=== PATIENT | female | born 2000 | race Hispanic/Latino ===

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

== ENCOUNTER 2018-05-04 15:24 | Emergency (ER) | payer SELFPAY ==
[~2018-05-04] VITALS: Ht 162.6 cm; Wt 83.9 kg
[~2018-05-04 15:24] MED LIST changes: +ACHD5005 PO; +CEFD300C3 PO; -HYDR-3812 PO; +METH-313 PO; +NAPR-1070 PO
[2018-05-04] MEDS ORDERED: ANTACID SUSP 30 ML UDC (MYLANTA) PO ONE (15:45)
[2018-05-04] MEDS ORDERED: LIDOCAINE 2% VISCOUS 15 ML UDC PO ONE (15:45)
[2018-05-04] MEDS ORDERED: ONDANSETRON 4 MG (ZOFRAN) ORAL DISSOLVE TAB SL ONE (15:45)
--- NOTE | 2018-05-04 15:52 | ED Abdominal Pain ---
General Chief Complaint: Abdominal/GI Problems Stated Complaint: STOMACH PAIN AFTER EATING Nursing Triage Note: PT REPORTS CONSTANT EPIGASTRIC PAIN X 3 DAYS. REPORTS SHE HAS HAD INTERMITTENT EPIGASTRIC PAIN 2-3 WEEKS. REPORTS SHE HAS HAD HER GALLBLADDER REMOVED 2 YEARS AGO BUT STILL EATS SPICY, GREASY FOODS. Sepsis Screen: No Definite Risk Source of Information: Patient, Old Records Exam Limitations: No Limitations History of Present Illness Date Seen by Provider: May 04, 2018 Time Seen by Provider: 15:34 Initial Comments This 18-year-old young lady presents to the emergency room with complaints of epigastric pain intermittently for the past 3 days. She particularly has pain after eating. Also repeated his delayed about 15-30 minutes after eating. She is status post cholecystectomy due to cholelithiasis in 2016.. She also had an ERCP prior to the cholecystectomy. She has nausea associated with the pain but no vomiting. She also has diarrhea shortly after eating. She denies any fever. She took Pepto-Bismol which was not effective. She reports her pain president is 6/10. She is still nauseated at present. Allergies and Home Medications Allergies Coded Allergies: No Known Drug Allergies (Unverified , 08/21/16) Home Medications Cefdinir 300 Mg Capsule, 300 MG PO BID Prescribed by: ISABEL ESCOBAR on 08/21/162123 Methocarbamol 750 Mg Tablet, 1,500 MG PO QID Prescribed by: ISABEL ESCOBAR on 08/21/162123 Naproxen Sodium 550 Mg Tablet, 550 MG PO Q12H Prescribed by: ISABEL ESCOBAR on 08/21/162123 Omeprazole 20 Mg Tablet.dr, 20 MG PO BID Prescribed by: ROBER LUCAS on 05/04/18 1645 Patient Home Medication List Home Medication List Reviewed: Yes Review of Systems Review of Systems Constitutional: no symptoms reported EENTM: No Symptoms Reported Respiratory: No Symptoms Reported Cardiovascular: No Symptoms Reported Gastrointestinal: See HPI Genitourinary: No Symptoms Reported Musculoskeletal: no symptoms reported Skin: no symptoms reported Psychiatric/Neurological: No Symptoms Reported Endocrine: No Symptoms Reported Hematologic/Lymphatic: No Symptoms Reported Past Hcgqhbf-Mgskgn-Kxmckh Hx Past Med/Social Hx: Reviewed and Corrections made Patient Social History Alcohol Use: Denies Use Recreational Drug Use: No Smoking Status: Never a Smoker 2nd Hand Smoke Exposure: No Recent Foreign Travel: No Contact w/Someone Who Travel: No Recent Infectious Disease Expo: No Recent Hopitalizations: No Physical Abuse: No Sexual Abuse: No Mistreated: No Fear: No Immunizations Up To Date Tetanus Booster (TDap): Unknown PED Vaccines UTD: Yes Date of Influenza Vaccine: Apr 26, 2016 Seasonal Allergies Seasonal Allergies: No Past Medical History Surgeries: Yes Abdominal (ERCP), Gallbladder Respiratory: No Cardiac: No Neurological: No : No Last Menstrual Period: May 01, 2018 Reproductive Disorders: Yes Female Reproductive Disorders: Menstrual Problems Sexually Transmitted Disease: No HIV/AIDS: No Gastrointestinal: Yes (CLINICAL DX--NO EGD OR GI STUDIES DONE) Gastroesophageal Reflux, Gall Bladder Disease Musculoskeletal: No Endocrine: No HEENT: No Cancer: No Psychosocial: No Integumentary: No Blood Disorders: Yes (ANEMIA WITH ) Adverse Reaction/Blood Tranf: No Family Medical History Reviewed Nursing Family Hx ABD PAIN 19 MOTHER Asthma 19 MOTHER G8 BROTHER No Pertinent Family Hx Physical Exam Vital Signs Vital Signs - First Documented 05/04/18 15:39 Temp 98.2 Pulse 75 Resp 20 B/P (MAP) 131/96 (108) Pulse Ox 96 Capillary Refill : Less Than 3 Seconds Height/Weight/BMI Height: 5'4.00" Weight: 185lbs. 0.0oz. 83.285541ib; 29.18 BMI Method:Stated General Appearance: WD/WN, no apparent distress HEENT: normal ENT inspection Neck: normal inspection Respiratory: lungs clear, normal breath sounds, no respiratory distress, no accessory muscle use Cardiovascular: regular rate, rhythm, no edema, no murmur Gastrointestinal: normal bowel sounds, soft, tenderness (point tenderness in the epigastrium) Extremities: normal inspection, no pedal edema Neurologic/Psychiatric: cut filer II-XII nml as tested, no motor/sensory deficits, alert, normal mood/affect, oriented x 3 Skin: normal color, warm/dry Progress/Results/Core Measures Results/Orders My Orders Orders - ROBER MILLIGAN MD Ondansetron Oral Dissolve Tab (Zofran (05/04/18 15:45) Lidocaine 2% Viscous 15 Ml (Xylocaine Vi (05/04/18 15:45) Antacid Suspension (Mylanta Suspension (05/04/18 15:45) Medications Given in ED Current Medications Medications Dose Ordered Sig/Shawn Route Start Time Stop Time Status Last Admin Dose Admin Al Hydrox/Mg Hydrox/Simethicone 30 ml ONCE ONCE PO 05/04/18 15:45 05/04/18 15:46 DC 05/04/18 16:02 30 ML Lidocaine HCl 15 ml ONCE ONCE PO 05/04/18 15:45 05/04/18 15:46 DC 05/04/18 16:02 15 ML Ondansetron HCl 8 mg ONCE ONCE SL 05/04/18 15:45 05/04/18 15:46 DC 05/04/18 16:02 8 MG Vital Signs/I&O 05/04/18 15:39 Temp 98.2 Pulse 75 Resp 20 B/P (MAP) 131/96 (108) Pulse Ox 96 Blood Pressure Mean: 108 Progress Progress Note : Progress Note Patient was treated with sublingual Zofran and a GI cocktail. This reduced her pain from 6/10 down to 3/10. She was much less tender on reexamination. Given these results, evaluation with labs was felt unnecessary. Patient does admit to consuming caffeinated/carbonated beverages and drinking a lot of spicy foods. I think her symptoms may be multifactorial. She may have some degree of gastritis and/or gastroesophageal reflux causing her epigastric pain. 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 She does note that her stools often have an oily appearance to them. I have recommended dietary changes and treatment with omeprazole for one month. If she is not having improvement after couple weeks she should discuss the potential for endoscopy with her providers. Departure Impression Primary Impression: Epigastric pain Additional Impressions: Nausea Diarrhea Qualified Codes: R19.7 - Diarrhea, unspecified Disposition: 01 HOME, SELF-CARE Condition: Improved Departure-Patient Inst. Decision time for Depature: 16:42 Referrals: DEVORAH NARAYAN MD (PCP/Family) Primary Care Physician Patient Instructions: Acid Reflux (Gastroesophageal Reflux Disease) in Adults, Acute Abdomen (Belly Pain), Adult (DC), Gastritis (DC) Add. Discharge Instructions: Take omeprazole twice daily as prescribed. Take omeprazole for a full month even if you're feeling better. Follow-up with your primary care provider or surgeon in 1 to 2 weeks. Return to care sooner if symptoms are worsening. Avoid the following: Eating large meals, eating close to bedtime, caffeine, carbonation, chocolate, tobacco, alcohol, citrus fruits and juices, tomato products, mints, fatty or greasy foods, NSAID medications such as ibuprofen or naproxen, spicy foods, or anything else you know irritates your stomach. You may take Tylenol (acetaminophen) up to 1000 mg every 6 hours as needed for pain. You may also try Tums. Expect gradual improvement over the next couple of weeks. If you're still having pain after 2 weeks of treatment, please see your surgeon regarding possible endoscopy. All discharge instructions reviewed with patient and/or family. Voiced understanding. Scripts Omeprazole (Omeprazole) 20 Mg Tablet. 20 MG PO BID, #60 TAB Prov: ROBER MILLIGAN MD 05/04/18 Copy Copies To 1: DEVORAH NARAYAN MD, JOSHUA T MD May 04, 2018 15:52
[2018-05-04] MEDS ORDERED: OMEP20TA7 PO (16:45)
[2018-05-04 17:11] VITALS: BP 126/71
== END 2018-05-04 17:10 | disposition home or self-care (01) ==
LOC: EDUNIT# 15:24 → ER 15:25
DX: R10.13 Epigastric pain (principal); R11.0 Nausea; R19.7 Diarrhea, unspecified; K21.9 Gastro-esophageal reflux disease without esophagitis; Z87.448 Personal history of other diseases of urinary system; Z90.49 Acquired absence of other specified parts of digestive tract
CPT/HCPCS: 99283

== ENCOUNTER 2019-05-06 11:44 | Outpatient (CLI) | payer MEDICAID ==
[~2019-05-06] VITALS: Ht 162.6 cm; Wt 186.6 kg
[~2019-05-06 11:44] MED LIST changes: -OMEP20CA12 PO; +OMEP20CA13 PO
--- NOTE | 2019-05-06 11:51 | NUR ---
SOWMYA RITTER presented to unit via ambulation from ED with c/o lower stomach pain since 1830 last noc. Pt.weighed, gowned, voided, and to bed. Pt. oriented to bed controls, call light, TV, heat, and A/C controls.
[2019-05-06 12:01] VITALS: BP 134/74
--- NOTE | 2019-05-06 12:01 | NUR ---
vs taken. TOCO applied. reports +FM. denies vaginal bleeding or leaking fluid. reports 20-1/7 weeks per ED staff with c/o ;ower abd pain since last noc @ 1830. denies taking medication for pain. william UA sx's. lower abd soft & non tender to palpation. reports hx of ARSHAD, nausea/ vomiting with current .
--- NOTE | 2019-05-06 12:06 | NUR ---
FHR 156 per doppler.
[2019-05-06 12:26] LABS: BILIRUBIN,URINE NEGATIVE (NEGATIVE); CLARITY,URINE CLEAR; COLOR,URINE YELLOW; GLUCOSE, URINE (UA) NEGATIVE (NEGATIVE); KETONES,URINE NEGATIVE (NEGATIVE); LEUKOCYTE ESTERASE ,URINE 1+ (NEGATIVE); NITRITE,URINE NEGATIVE (NEGATIVE); PH,URINE 8 (5-9); PROTEIN,URINE NEGATIVE (NEGATIVE)
--- NOTE | 2019-05-06 12:35 | NUR ---
DAVE fernandez'viktoria. no ctx's noted. pt laying on side on cell phone. no sx's of distress noted.
[2019-05-06 12:38] LABS: BACTERIA,URINE TRACE /HPF; WBC,URINE 0-2 /HPF
--- NOTE | 2019-05-06 12:40 | NUR ---
pt reports EDC: 11-21-19 (11 4/7 weeks) vs 20-1/7 weeks reported by ED staff. reviewed with pt gestation r/t kicks.
--- NOTE | 2019-05-06 12:46 | NUR ---
was called r/t pt's admission c/o's. reviewed confirmed EDC-11/21/19, 114/7 weeks gestation with dismissal orders received.
[2019-05-06] MEDS ORDERED: PREN1TAB79 PO (12:52)
[2019-05-06] MEDS ORDERED: ONDA4TAB11 PO (12:53)
--- NOTE | 2019-05-06 13:00 | NUR ---
dismissal instructions given, verbalizes understanding. reviewed Tylenol dosage and schedule prn pain. signature page signed, placed on chart.
--- NOTE | 2019-05-06 13:05 | NUR ---
pt ambulated to private vehicle without distress noted.
--- NOTE | 2019-05-07 09:28 | Physician Query-Final Dx ---
CHANTELLE LOAIZA 05/07/19 0928: Clinic Account Progress/Dx Physician Query: Please give diagnosis Please include # weeks gestation Date of Service May 06, 2019 at 11:44 DASHAWN NATHAN DO 05/23/19 1409: Clinic Account Progress/Dx DIAGNOSIS: Diagnosis 11 week gestation abdominal pain CHANTELLE LOAIZA May 07, 2019 09:28 DASHAWN HILL DO May 23, 2019 14:09 POS
== END 2019-05-06 13:05 ==
LOC: WSo 11:44 → LDRP 11:44 → WSo 13:05
PROVIDERS: ATTEND Obstetrics & Gynecology
DX: O99.89 Other specified diseases and conditions complicating pregnancy, childbirth and the puerperium (principal); R10.30 Lower abdominal pain, unspecified; Z3A.00 Weeks of gestation of pregnancy not specified
CPT/HCPCS: 81000; 87088; 99212

== ENCOUNTER 2019-05-21 16:27 | Emergency (ER) | payer SELFPAY ==
[~2019-05-21] VITALS: Ht 162.6 cm; Wt 84.1 kg
[~2019-05-21 16:27] MED LIST changes: +PREN1TAB79 PO
[2019-05-21] MEDS ORDERED: NS IV 1000 ML 1,000 ML IV SCH (16:56)
[2019-05-21 17:14] LABS: BASOPHILS % (AUTO) 0 % (0-10); CLARITY,URINE CLEAR; COLOR,URINE YELLOW; EOSINOPHILS % (AUTO) 1 % (0-10); GLUCOSE, URINE (UA) NEGATIVE (NEGATIVE); HEMATOCRIT 36 % (35-52); HEMOGLOBIN 12.7 G/DL (11.5-16.0); KETONES,URINE NEGATIVE (NEGATIVE); LEUKOCYTE ESTERASE ,URINE TRACE (NEGATIVE); LYMPHOCYTES % (AUTO) 16 % (12-44); MEAN CORPUSCULAR HEMOGLOBIN 30 PG (25-34); MEAN CORPUSCULAR HGB CONC 35 G/DL (32-36); MEAN CORPUSCULAR VOLUME 85 FL (80-99); MEAN PLATELET VOLUME 9.9 FL (7.4-10.4); MONOCYTES # (AUTO) 0.4 X 10^3 (0.0-1.0); MONOCYTES % (AUTO) 6 % (0-12); NEUTROPHILS # (AUTO) 4.9 X 10^3 (1.8-7.8); NEUTROPHILS % (AUTO) 78 % (42-75); NITRITE,URINE NEGATIVE (NEGATIVE); PLATELET COUNT 217 10^3/uL (130-400); PROTEIN,URINE NEGATIVE (NEGATIVE); RED CELL DISTRIBUTION WIDTH 13.1 % (10.0-14.5); WHITE BLOOD COUNT 6.3 10^3/uL (4.3-11.0)
[2019-05-21 17:22] LABS: BACTERIA,URINE NEGATIVE /HPF; BILIRUBIN,URINE 1+ (NEGATIVE)
[2019-05-21] MEDS ORDERED: ONDANSETRON 4 MG/2 ML (SDV) Z0FRAN IVP ONE (17:30)
--- NOTE | 2019-05-21 17:31 | ED GI ---
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 Pt reports onset of symptoms to be 05/20/19. Reports to be approx 13wks . Pt was advised by Dr. Curtis to be seen in ED in unable to keep food or fluids down. Pt reports she has been NPO >24hrs. Denies fever or chills. Sepsis Screen: No Definite Risk History of Present Illness Date Seen by Provider: May 21, 2019 Time Seen by Provider: 16:50 Initial Comments 19 year old -[place] Citizen female presents for persistent nausea vomiting and diarrhea. She states her symptoms began at approximately 11:00 on 05/20/19. She has not eaten any solid foods and spaghetti at that time. She reports 3 episodes of diarrhea today. She has not vomited approximately 11:00 this morning, she took Zofran orally at that time. She has been trying to drink water. She is taking a vitamin daily with no nausea or vomiting. She is approximately 14 weeks gestation. She last saw Dr. Maddox at 11 weeks. She takes Zofran every 6-8 hours as needed and Diclegis at hs. Timing/Duration: 12-24 Hours Severity/Quality: Mild Location: Generalized Abdomen Radiation: No Radiation Activities at Onset: None Associated Symptoms: No Denies Symptoms, No Back Pain, No Chest Pain, No Diaphoresis, No Fever/Chills, No Fatigue, No Headache, No Heartburn; Nausea/Vomiting; No Rash, No Shortness of Air, No Swelling/Mass in Abdomen, No Syncope, No Weakness, No Other Allergies and Home Medications Allergies Coded Allergies: No Known Drug Allergies (Unverified , 08/21/16) Home Medications Ondansetron 4 Mg Tab.rapdis, 4 MG PO PRN, (Reported) Vit W-Ca,Fe,FA(<1 mg) 1 Each Tablet, 1 EACH PO DAILY, (Reported) Patient Home Medication List Home Medication List Reviewed: Yes Review of Systems Review of Systems Constitutional: no symptoms reported, see HPI Gastrointestinal: See HPI, Abdominal Pain, Diarrhea, Nausea, Vomiting All Other Systems Reviewed Negative Unless Noted: Yes Past Ongtyla-Fxxhpd-Jthwjb Hx Past Med/Social Hx: Reviewed Nursing Past Med/Soc Hx Patient Social History Alcohol Use: Denies Use Recreational Drug Use: No Smoking Status: Never a Smoker 2nd Hand Smoke Exposure: No Recent Foreign Travel: No Contact w/Someone Who Travel: No Recent Infectious Disease Expo: No Recent Hopitalizations: No Immunizations Up To Date Tetanus Booster (TDap): Unknown PED Vaccines UTD: Yes Date of Influenza Vaccine: Apr 26, 2016 Seasonal Allergies Seasonal Allergies: No Past Medical History Surgeries: Yes Abdominal, Gallbladder Respiratory: No Cardiac: No Neurological: No Reproductive Disorders: Yes Female Reproductive Disorders: Menstrual Problems Sexually Transmitted Disease: No HIV/AIDS: No Gastrointestinal: Yes (CLINICAL DX--NO EGD OR GI STUDIES DONE) Gastroesophageal Reflux, Gall Bladder Disease Musculoskeletal: No Endocrine: No HEENT: No Cancer: No Psychosocial: No Integumentary: No Blood Disorders: Yes (ANEMIA WITH ) Adverse Reaction/Blood Tranf: No Family Medical History ABD PAIN 19 MOTHER Asthma 19 MOTHER G8 BROTHER No Pertinent Family Hx Physical Exam Vital Signs Vital Signs - First Documented 05/21/19 16:36 Temp 36.9 Pulse 95 Resp 17 B/P (MAP) 113/77 (89) Pulse Ox 98 O2 Delivery Room Air Capillary Refill : Less Than 3 Seconds Height/Weight/BMI Height: 5'4.00" Weight: 185lbs. 0.0oz. 83.830644ul; 31.00 BMI Method:Stated General Appearance: WD/WN, no apparent distress HEENT: PERRL/EOMI, normal ENT inspection, TMs normal, pharynx normal, other (oral mucosa pink and moist) Neck: non-tender, full range of motion, supple, normal inspection Respiratory: chest non-tender, lungs clear, normal breath sounds Cardiovascular: normal peripheral pulses, regular rate, rhythm Gastrointestinal: normal bowel sounds, non tender, soft; No distended, No guarding, No rebound, No tenderness Extremities: normal range of motion, non-tender, normal inspection, normal capillary refill Neurologic/Psychiatric: no motor/sensory deficits, alert, normal mood/affect, oriented x 3 Skin: normal color, warm/dry Lymphatic: no adenopathy Progress/Results/Core Measures Results/Orders Lab Results Laboratory Tests Test 05/21/19 17:06 Range/Units White Blood Count 6.3 4.3-11.0 10^3/uL Red Blood Count 4.24 L 4.35-5.85 10^6/uL Hemoglobin 12.7 11.5-16.0 G/DL Hematocrit 36 35-52 % Mean Corpuscular Volume 85 80-99 FL Mean Corpuscular Hemoglobin 30 25-34 PG Mean Corpuscular Hemoglobin Concent 35 32-36 G/DL Red Cell Distribution Width 13.1 10.0-14.5 % Platelet Count 217 130-400 10^3/uL Mean Platelet Volume 9.9 7.4-10.4 FL Neutrophils (%) (Auto) 78 H 42-75 % Lymphocytes (%) (Auto) 16 12-44 % Monocytes (%) (Auto) 6 0-12 % Eosinophils (%) (Auto) 1 0-10 % Basophils (%) (Auto) 0 0-10 % Neutrophils # (Auto) 4.9 1.8-7.8 X 10^3 Lymphocytes # (Auto) 1.0 1.0-4.0 X 10^3 Monocytes # (Auto) 0.4 0.0-1.0 X 10^3 Eosinophils # (Auto) 0.0 0.0-0.3 10^3/uL Basophils # (Auto) 0.0 0.0-0.1 10^3/uL Urine Color YELLOW Urine Clarity CLEAR Urine pH 6.0 5-9 Urine Specific [place] 1.020 1.016-1.022 Urine Protein NEGATIVE NEGATIVE Urine Glucose (UA) NEGATIVE NEGATIVE Urine Ketones NEGATIVE NEGATIVE Urine Nitrite NEGATIVE NEGATIVE Urine Bilirubin 1+ H NEGATIVE Urine Urobilinogen 0.2 < = 1.0 MG/DL Urine Leukocyte Esterase TRACE NEGATIVE Urine RBC (Auto) NEGATIVE NEGATIVE Urine RBC 2-5 H /HPF Urine WBC 2-5 /HPF Urine Squamous Epithelial Cells 5-10 /HPF Urine Crystals NONE /LPF Urine Bacteria NEGATIVE /HPF Urine Casts NONE /LPF Urine Mucus SMALL H /LPF Urine Culture Indicated NO Sodium Level 134 L 135-145 MMOL/L Potassium Level 3.4 L 3.6-5.0 MMOL/L Chloride Level 104 98-107 MMOL/L Carbon Dioxide Level 21 21-32 MMOL/L Anion Gap 9 5-14 MMOL/L Blood Urea Nitrogen 9 7-18 MG/DL Creatinine 0.66 0.60-1.30 MG/DL Estimat Glomerular Filtration Rate > 60 BUN/Creatinine Ratio 14 Glucose Level 127 H 70-105 MG/DL Calcium Level 9.6 8.5-10.1 MG/DL Corrected Calcium 9.4 8.5-10.1 MG/DL Total Bilirubin 0.4 0.1-1.0 MG/DL Aspartate Amino Transf (AST/SGOT) 23 5-34 U/L Alanine Aminotransferase (ALT/SGPT) 35 0-55 U/L Alkaline Phosphatase 35 L 40-136 U/L Total Protein 7.2 6.4-8.2 GM/DL Albumin 4.3 3.2-4.5 GM/DL My Orders Orders - ABBE KIDD Cbc With Automated Diff (05/21/19 16:55) Comprehensive Metabolic Panel (05/21/19 16:55) Ua Culture If Indicated (05/21/19 16:55) Urine Bedside (05/21/19 16:55) Ed Iv/Invasive Line Start (05/21/19 16:56) Ns Iv 1000 Ml (Sodium Chloride 0.9%) (05/21/19 16:56) Ondansetron Injection (Zofran Injectio (05/21/19 17:30) Medications Given in ED Current Medications Medications Dose Ordered Sig/Shawn Route Start Time Stop Time Status Last Admin Dose Admin Ondansetron HCl 8 mg ONCE ONCE IVP 05/21/19 17:30 05/21/19 17:31 DC 05/21/19 17:30 8 MG Vital Signs/I&O 05/21/19 05/21/19 16:36 18:32 Temp 36.9 36.9 Pulse 95 84 Resp 17 14 B/P (MAP) 113/77 (89) 124/82 Pulse Ox 98 100 O2 Delivery Room Air Room Air Blood Pressure Mean: 89 POS Progress Progress Note : Time: 16:50 Progress Note Patient seen and evaluated, will obtain labs, normal saline 1 L per IV and Zofran 8 mg IV. Will continue to monitor. 1730 patient reports nausea has improved, will try ice chips and continue to monitor. 1800 taking ice chips with no nausea or vomiting. Patient has not had diarrhea since admission. Will try Pedialyte in planning to discharge if able to tolerate that. 1825 patient taking Pedialyte with no nausea, vomiting, or diarrhea. Discharge instructions and return precautions reviewed with the patient. Stressed the importance of staying on a clear liquid diet for the next 6-8 hours and then progressing to bland diet. Departure Impression Primary Impression: Second trimester Additional Impressions: Vomiting Qualified Codes: R11.2 - Nausea with vomiting, unspecified Acute diarrhea Disposition: HOME, SELF-CARE Condition: Improved Departure-Patient Inst. Decision time for Depature: 18:25 Referrals: SANDI MADDOX DO (PCP/Family) Primary Care Physician Patient Instructions: Morning Sickness (DC), Nausea and Vomiting of (DC) Add. Discharge Instructions: Clear liquid diet for 6-8 hours, then bland, non-spicy, non-fried foods. Follow up with Dr. Maddox in the next 2-3 days. Continue to take Zofran and Diclegis, as prescribed by Dr. Maddox. Continue to take your vitamins. Return to emergency dept for new, urgent health care problems. All discharge instructions reviewed with patient and/or family. Voiced und erstanding. Copy Copies To 1: SANDI MADDOX AMY ARNP May 21, 2019 17:31 POS
[2019-05-21 17:32] LABS: ALANINE AMINOTRANSFERASE 35 U/L (0-55); ALBUMIN 4.3 GM/DL (3.2-4.5); ALKALINE PHOSPHATASE 35 U/L (40-136); BILIRUBIN,TOTAL 0.4 MG/DL (0.1-1.0); BUN/CREATININE RATIO 14; CALCIUM 9.6 MG/DL (8.5-10.1); CARBON DIOXIDE 21 MMOL/L (21-32); CHLORIDE 104 MMOL/L (98-107); CREATININE SERUM 0.66 MG/DL (0.60-1.30); GFR ESTIMATED > 60; GLUCOSE 127 MG/DL (70-105); POTASSIUM 3.4 MMOL/L (3.6-5.0); SODIUM 134 MMOL/L (135-145); TOTAL PROTEIN 7.2 GM/DL (6.4-8.2)
--- NOTE | 2019-05-21 17:40 | NUR ---
Patient eating ice chips.
--- NOTE | 2019-05-21 18:20 | NUR ---
Patient drinking Pedialyte without difficulty.
[2019-05-21 18:32] VITALS: BP 124/82
== END 2019-05-21 18:34 | disposition home or self-care (01) ==
LOC: EDUNIT# 16:27 → ER 16:30
DX: O21.0 Mild hyperemesis gravidarum (principal); O26.892 Other specified pregnancy related conditions, second trimester; R19.7 Diarrhea, unspecified; O99.612 Diseases of the digestive system complicating pregnancy, second trimester; K21.9 Gastro-esophageal reflux disease without esophagitis; O99.012 Anemia complicating pregnancy, second trimester; Z3A.14 14 weeks gestation of pregnancy
CPT/HCPCS: 36415; 80053; 81000; 84703; 85025

== ENCOUNTER → 2019-07-09 | Outpatient (CLI) | payer MEDICAID ==
--- NOTE | 2019-07-09 16:13 | Diagnostic Imaging Report ---
INDICATION: survey. TECHNIQUE: Multiple real-time grayscale images were obtained over the gravid uterus. COMPARISON: None. FINDINGS: There is a single live fetus in a variable presentation. heart rate was recorded at 160 bpm. Placenta is anterior. Amniotic fluid volume is normal. Cervical length is 4.1 cm. survey demonstrates kidneys, bladder and stomach to be unremarkable. brain is unremarkable. There is a four-chamber heart. There is a three-vessel cord with normal insertion. spine is unremarkable. Biometrical measurements are as follows: Biparietal 5.17 cm, age 21 weeks 5 days. Head circumference 19.53 cm, age 21 weeks 6 days. Abdominal circumference 16.20 cm, age 21 weeks 2 days. Femur length 3.41 cm, age 20 weeks 6 days. Sonographic estimate age: 21 weeks 3 days. Sonographic estimated date of delivery: 11/16/2019. Estimated Weight: 401 gm (+/- 59 gm). LMP percentile: 68%. heart rate: 160 beats per minute. number: 1 of 1. IMPRESSION: Single live IUP 21 weeks 3 days gestational age. The estimated date of confinement sonographically is 11/16/2019. Dictated by: Dictated on workstation # [id number]
== END ==
LOC: RAD 12:58
PROVIDERS: ATTEND Nurse Practitioner Women's Health
DX: Z36.89 Encounter for other specified antenatal screening (principal); Z3A.21 21 weeks gestation of pregnancy
CPT/HCPCS: 76805

== ENCOUNTER 2019-07-19 10:09 | Emergency (ER) | payer MEDICAID ==
[~2019-07-19] VITALS: Ht 162.5 cm; Wt 87.7 kg
[~2019-07-19 10:09] MED LIST changes: +OMEP-280 PO; -OMEP20CA13 PO
--- NOTE | 2019-07-19 11:30 | ED Integumentary General ---
General Chief Complaint: Skin/Wound Problems Stated Complaint: RASH Nursing Triage Note: AMB TO ED WITH SWOLLEN L 4TH FINGER WAS SEEN AT [facility] YESTERDAY AND STARTED ON KEFLEX. PATIENT THINKS IT MAY BE GETTING WORSE. APX 22 WEEKS PREG. REPORTS STARTED AFTER CUTTNG HER NAIL TO SHORT. Source: patient Exam Limitations: no limitations History of Present Illness Date Seen by Provider: Jul 19, 2019 Time Seen by Provider: 11:18 Initial Comments 19-year-old female who presents to the emergency room for concerns that her finger infection is getting worse. She was seen yesterday at [facility] and had a diagnosis of paronychia of the left fourth finger that caused streaking to the back side of her hand. She received 1 g of Rocephin IM and was started on Keflex. She has requesting lab work today just to ensure that it is not in her bloodstream. The streaking is gone at this time. She does have erythema surrounding her nailbed. No fluctuation to suggest abscess around the finger nail bed. She denies fevers, nausea, vomiting, body aches or chills. She is 22 weeks . Timing/Duration: yesterday Associated Symptoms: denies symptoms Allergies and Home Medications Allergies Coded Allergies: No Known Drug Allergies (Unverified , 08/21/16) Home Medications Ondansetron 4 Mg Tab.rapdis, 4 MG PO PRN, (Reported) Vit W-Ca,Fe,FA(<1 mg) 1 Each Tablet, 1 EACH PO DAILY, (Reported) Patient Home Medication List Home Medication List Reviewed: Yes Review of Systems Review of Systems Constitutional: see HPI; No chills, No fever Skin: see HPI, other (redness surrounding nailbed of left fourth finger) All Other Systems Reviewed Negative Unless Noted: Yes Past Pfjzspj-Rscsyq-Hyxdcf Hx Past Med/Social Hx: Reviewed Nursing Past Med/Soc Hx Patient Social History Alcohol Use: Denies Use Recreational Drug Use: No Smoking Status: Never a Smoker 2nd Hand Smoke Exposure: No Recent Foreign Travel: No Contact w/Someone Who Travel: No Recent Infectious Disease Expo: No Recent Hopitalizations: No Immunizations Up To Date Tetanus Booster (TDap): Unknown PED Vaccines UTD: Yes Date of Influenza Vaccine: Apr 26, 2016 Seasonal Allergies Seasonal Allergies: No Past Medical History Surgeries: Yes Abdominal, Gallbladder Respiratory: No Cardiac: No Neurological: No Reproductive Disorders: Yes Female Reproductive Disorders: Menstrual Problems Sexually Transmitted Disease: No HIV/AIDS: No Gastrointestinal: Yes (CLINICAL DX--NO EGD OR GI STUDIES DONE) Gastroesophageal Reflux, Gall Bladder Disease Musculoskeletal: No Endocrine: No HEENT: No Cancer: No Psychosocial: No Integumentary: No Blood Disorders: Yes (ANEMIA WITH ) Adverse Reaction/Blood Tranf: No Family Medical History Reviewed Nursing Family Hx ABD PAIN 19 MOTHER Asthma 19 MOTHER G8 BROTHER No Pertinent Family Hx Physical Exam Vital Signs Vital Signs - First Documented 07/19/19 10:53 Temp 36.8 Pulse 81 Resp 18 B/P (MAP) 113/76 (88) Pulse Ox 99 Capillary Refill : Less Than 3 Seconds General Appearance: WD/WN, no apparent distress Respiratory: chest non-tender, lungs clear, normal breath sounds, no respiratory distress, no accessory muscle use Gastrointestinal: normal bowel sounds, non tender, soft, no organomegaly, no pulsatile mass Extremities: normal capillary refill Neurologic/Psychiatric: alert, normal mood/affect, oriented x 3 Skin: warm/dry, other (erythema surrounding the nailbed of the left fourth finger. There is no redness or streaking to the hand or wrist. Normal capillary refill of the left fourth finger.) Progress/Results/Core Measures Results/Orders Lab Results Laboratory Tests Test 07/19/19 11:32 Range/Units White Blood Count 5.1 4.3-11.0 10^3/uL Red Blood Count 3.80 L 4.35-5.85 10^6/uL Hemoglobin 11.4 L 11.5-16.0 G/DL Hematocrit 34 L 35-52 % Mean Corpuscular Volume 89 80-99 FL Mean Corpuscular Hemoglobin 30 25-34 PG Mean Corpuscular Hemoglobin Concent 34 32-36 G/DL Red Cell Distribution Width 13.9 10.0-14.5 % Platelet Count 180 130-400 10^3/uL Mean Platelet Volume 10.7 H 7.4-10.4 FL Neutrophils (%) (Auto) 71 42-75 % Lymphocytes (%) (Auto) 21 12-44 % Monocytes (%) (Auto) 7 0-12 % Eosinophils (%) (Auto) 1 0-10 % Basophils (%) (Auto) 0 0-10 % Neutrophils # (Auto) 3.6 1.8-7.8 X 10^3 Lymphocytes # (Auto) 1.1 1.0-4.0 X 10^3 Monocytes # (Auto) 0.3 0.0-1.0 X 10^3 Eosinophils # (Auto) 0.0 0.0-0.3 10^3/uL Basophils # (Auto) 0.0 0.0-0.1 10^3/uL Sodium Level 136 135-145 MMOL/L Potassium Level 3.6 3.6-5.0 MMOL/L Chloride Level 107 98-107 MMOL/L Carbon Dioxide Level 20 L 21-32 MMOL/L Anion Gap 9 5-14 MMOL/L Blood Urea Nitrogen 6 L 7-18 MG/DL Creatinine 0.54 L 0.60-1.30 MG/DL Estimat Glomerular Filtration Rate > 60 BUN/Creatinine Ratio 11 Glucose Level 91 70-105 MG/DL Calcium Level 8.7 8.5-10.1 MG/DL Corrected Calcium 8.9 8.5-10.1 MG/DL Total Bilirubin 0.2 0.1-1.0 MG/DL Aspartate Amino Transf (AST/SGOT) 12 5-34 U/L Alanine Aminotransferase (ALT/SGPT) 16 0-55 U/L Alkaline Phosphatase 42 40-136 U/L Total Protein 6.2 L 6.4-8.2 GM/DL Albumin 3.7 3.2-4.5 GM/DL My Orders Orders - JOSE CARDONA Cbc With Automated Diff (07/19/19 11:16) Comprehensive Metabolic Panel (07/19/19 11:16) Blood Culture (07/19/19 11:16) Vital Signs/I&O 07/19/19 10:53 Temp 36.8 Pulse 81 Resp 18 B/P (MAP) 113/76 (88) Pulse Ox 99 Blood Pressure Mean: 88 Progress Progress Note : Time: 12:26 Progress Note I have seen and evaluated the patient. I've informed her of her laboratory findings. She does have an appointment with her OB later this afternoon. She will mention to him that she is on the antibiotics. I have instructed close follow-up early next week to ensure that the patient is improving. Return precautions were given. Departure Impression Primary Impression: Paronychia of finger of left hand Disposition: 01 HOME, SELF-CARE Condition: Stable/Unchanged Departure-Patient Inst. Decision time for Depature: 11:59 Referrals: [facility] (PCP/Family) Primary Care Physician Patient Instructions: [place] Add. Discharge Instructions: Continue antibiotics as previously prescribed. You may do Epsom salts soaks to the area. Call to schedule an appointment for Tuesday with [facility] for further evaluation and follow-up. Return back to the emergency room for worsening symptoms or concerns as needed. All discharge instructions reviewed with patient and/or family. Voiced understanding. JOSE CARDONA Jul 19, 2019 11:30
[2019-07-19 11:52] LABS: BASOPHILS % (AUTO) 0 % (0-10); EOSINOPHILS % (AUTO) 1 % (0-10); HEMATOCRIT 34 % (35-52); HEMOGLOBIN 11.4 G/DL (11.5-16.0); LYMPHOCYTES # (AUTO) 1.1 X 10^3 (1.0-4.0); LYMPHOCYTES % (AUTO) 21 % (12-44); MEAN CORPUSCULAR HEMOGLOBIN 30 PG (25-34); MEAN CORPUSCULAR HGB CONC 34 G/DL (32-36); MEAN CORPUSCULAR VOLUME 89 FL (80-99); MEAN PLATELET VOLUME 10.7 FL (7.4-10.4); MONOCYTES # (AUTO) 0.3 X 10^3 (0.0-1.0); MONOCYTES % (AUTO) 7 % (0-12); NEUTROPHILS # (AUTO) 3.6 X 10^3 (1.8-7.8); NEUTROPHILS % (AUTO) 71 % (42-75); PLATELET COUNT 180 10^3/uL (130-400); RED CELL DISTRIBUTION WIDTH 13.9 % (10.0-14.5); WHITE BLOOD COUNT 5.1 10^3/uL (4.3-11.0)
[2019-07-19 12:07] LABS: ALANINE AMINOTRANSFERASE 16 U/L (0-55); ALBUMIN 3.7 GM/DL (3.2-4.5); ALKALINE PHOSPHATASE 42 U/L (40-136); BILIRUBIN,TOTAL 0.2 MG/DL (0.1-1.0); BUN/CREATININE RATIO 11; CALCIUM 8.7 MG/DL (8.5-10.1); CARBON DIOXIDE 20 MMOL/L (21-32); CHLORIDE 107 MMOL/L (98-107); CREATININE SERUM 0.54 MG/DL (0.60-1.30); GFR ESTIMATED > 60; GLUCOSE 91 MG/DL (70-105); POTASSIUM 3.6 MMOL/L (3.6-5.0); SODIUM 136 MMOL/L (135-145); TOTAL PROTEIN 6.2 GM/DL (6.4-8.2)
[2019-07-19 12:34] VITALS: BP 113/76
== END 2019-07-19 12:41 | disposition home or self-care (01) ==
LOC: EDUNIT# 10:09 → ER 10:10
DX: L03.012 Cellulitis of left finger (principal); K21.9 Gastro-esophageal reflux disease without esophagitis
CPT/HCPCS: 36415; 80053; 85025; 87040; 99282

== ENCOUNTER 2019-08-17 22:57 | Outpatient (CLI) | payer MEDICAID ==
[~2019-08-17] VITALS: Ht 163 cm; Wt 88.8 kg
--- NOTE | 2019-08-17 23:05 | NUR ---
SOWMYA RITTER presented to unit via AMBULATION from HOME/ED, accompanied by CHILDREN, with c/o BACK PAIN, CONTRACTIONS. SOWMYA RITTER weighed, gowned, voided, and to bed. EFHM and TOCO applied, VS taken. SOWMYA RITTER oriented to bed controls, call light, TV, heat, and A/C controls.
[2019-08-17 23:17] VITALS: BP 118/65
[2019-08-17 23:27] LABS: BILIRUBIN,URINE NEGATIVE (NEGATIVE); CLARITY,URINE CLEAR; COLOR,URINE YELLOW; GLUCOSE, URINE (UA) NEGATIVE (NEGATIVE); KETONES,URINE NEGATIVE (NEGATIVE); LEUKOCYTE ESTERASE ,URINE NEGATIVE (NEGATIVE); NITRITE,URINE NEGATIVE (NEGATIVE); PH,URINE 7.5 (5-9); PROTEIN,URINE 1+ (NEGATIVE)
[2019-08-17 23:44] LABS: BACTERIA,URINE TRACE /HPF; RBC,URINE 0-2 /HPF; WBC,URINE 0-2 /HPF
[2019-08-17] MEDS ORDERED: oxyCODONE/APAP 5/325MG (PERCOCET 5) TABLET ONE (23:53)
[2019-08-17] MEDS ORDERED: CYCLOBENZAPRINE 10 MG (FLEXERIL) TAB ONE (23:54)
[2019-08-18] MEDS ORDERED: oxyCODONE/APAP 5/325MG (PERCOCET 5) TABLET PO ONE
[2019-08-18] MEDS ORDERED: CYCLOBENZAPRINE 10 MG (FLEXERIL) TAB PO ONE
--- NOTE | 2019-08-18 00:50 | NUR ---
D/C instructions given & explained per Tariq Clifton RN, pt. verbalized understanding & signed, copy of D/C instructions to pt. Reassurance given & encouraged pt. to go home & rest. Pt. left [facility] ambulatory escorted by family, to home via private vehicle.
--- NOTE | 2019-08-20 08:15 | Physician Query-Final Dx ---
CHANTELLE LOAIZA 08/20/19 0815: Clinic Account Progress/Dx Physician Query: Please give diagnosis Please include # weeks gestation Date of Service Aug 17, 2019 at 22:57 MARIANO ZULETA DO 08/20/19 2143: Clinic Account Progress/Dx Physician Query: Please give diagnosis DIAGNOSIS: Diagnosis Intrauterine at 26 weeks 2. Pelvic Pain 3. Back Pain CHANTELLE LOAIZA Aug 20, 2019 08:15 MARIANO ZULETA DO Aug 20, 2019 21:43
== END 2019-08-18 00:50 | disposition home or self-care (01) ==
LOC: WSo 22:57 → LDRP 23:00 → WSo 08-18 00:50
PROVIDERS: ATTEND Obstetrics & Gynecology
DX: O62.9 Abnormality of forces of labor, unspecified (principal); Z3A.26 26 weeks gestation of pregnancy
CPT/HCPCS: 81000; 99212

== ENCOUNTER 2019-09-07 14:22 | Outpatient (CLI) | payer MEDICAID ==
--- NOTE | 2019-09-07 14:10 | NUR ---
SOWMYA RITTER presented to unit via ambulation from home, accompanied by daughter, with c/o DECREASED MOVEMENT. SOWMYA RITTER weighed, gowned, voided, and to bed. EFHM and TOCO applied, VS taken. SOWMYA RITTER oriented to bed controls, call light, TV, heat, and A/C controls.
[~2019-09-07 14:22] MED LIST changes: -OMEP-280 PO; +OMEP20CA18 PO; +ONDA-105; +ONDA-105 PO; -ONDA4TAB10; -ONDA4TAB10 PO
--- NOTE | 2019-09-07 14:44 | NUR ---
Dr. Davis called and notified of pt arrival, c/o decreased movement since last night. notified that pt is , due november 20 (29.2weeks) with uncomplicated , reactive NST obtained, one small ctx noted, VS, & pt report of feeling movement since monitors applied. Orders rec'd for discharge.
[2019-09-07 14:45] VITALS: BP 108/63
--- NOTE | 2019-09-07 14:55 | NUR ---
Discharge instructions explained to pt with copy provided to pt. Pt verbalizes understanding of instructions and signs to verify. Pt ambulates off unit to private vehicle accompanied by daughter and all personal belongings. No s/s of distress noted.
--- NOTE | 2019-09-10 08:10 | Physician Query-Final Dx ---
Clinic Account Progress/Dx Physician Query: Please give diagnosis Please include # weeks gestation Date of Service Sep 07, 2019 at 14:22 CHANTELLE LOAIZA Sep 10, 2019 08:10
== END 2019-09-07 14:55 | disposition home or self-care (01) ==
LOC: WSo 14:22 → LDRP 14:27 → WSo 14:55
PROVIDERS: ATTEND Obstetrics & Gynecology
DX: O36.8130 Decreased fetal movements, third trimester, not applicable or unspecified (principal); Z3A.29 29 weeks gestation of pregnancy
CPT/HCPCS: 59025

== ENCOUNTER → 2021-06-16 | Outpatient (CLI) | payer MEDICAID ==
[~2021-06-16] MED LIST changes: +CATHETER FLUSH 10 ML SYR IV PRN; +DOCU-239 PO; +FERR325T18 PO; +HOLD METFORMIN - RECEIVED CONTRAST 20 ML VIAL IV SCH; +IBUP-844 PO; +IOHEXOL 350 MG/ML 100 ML (OMNIPAQUE 350) VIAL IV ONE; +NS 100 ML (IVPB) BAG IV ONE
--- NOTE | 2021-06-16 16:16 | Diagnostic Imaging Report ---
PROCEDURE: CT abdomen with contrast only. TECHNIQUE: Multiple contiguous axial images were obtained through the abdomen after the administration of intravenous contrast. Auto Exposure Controls were utilized during the CT exam to meet ALARA standards for radiation dose reduction. INDICATION: Hepatic calcification. COMPARISON: No previous study is available at this time for comparison. FINDINGS: There is diffuse low-density throughout the liver with multiple areas of hyperdensity on the post contrast images. This may be due to enhancement although noncontrast images were not obtained for confirmation. The largest is in the posterior right hepatic lobe measuring 2.9 x 1.9 cm. These do persist on delayed images. Peripheral nodular enhancement, as is typically seen with hemangioma, is not present. The gallbladder is surgically absent. There is no evidence of biliary ductal dilatation. No pancreatic, adrenal gland, splenic, or renal abnormality is seen. There is no free fluid. IMPRESSION: Hepatic steatosis with multiple areas of hyperdensity. Correlation with a noncontrast study would be useful to confirm the enhancing nature of the nodules. Multifocal nodular hyperplasia or multiple hepatic adenomas could have this appearance. An aggressive hepatic lesion is considered less likely and clinical correlation would be useful. A followup study could be performed for further characterization as well. Dictated by: Dictated on workstation # [id number]
== END ==
LOC: MERGE 15:15 → RAD 15:22
PROVIDERS: ATTEND Nurse Practitioner Family
DX: K76.0 Fatty (change of) liver, not elsewhere classified (principal); K76.89 Other specified diseases of liver
CPT/HCPCS: 74160

== ENCOUNTER → 2021-07-01 | Outpatient (CLI) | payer MEDICAID ==
[~2021-07-01] MED LIST changes: -CATHETER FLUSH 10 ML SYR IV PRN; -HOLD METFORMIN - RECEIVED CONTRAST 20 ML VIAL IV SCH; -IOHEXOL 350 MG/ML 100 ML (OMNIPAQUE 350) VIAL IV ONE; -NS 100 ML (IVPB) BAG IV ONE
--- NOTE | 2021-07-01 13:37 | Diagnostic Imaging Report ---
PROCEDURE: CT abdomen without contrast. TECHNIQUE: Multiple contiguous axial images were obtained through the abdomen without the use of intravenous contrast. Auto Exposure Controls were utilized during the CT exam to meet ALARA standards for radiation dose reduction. INDICATION: Hepatic steatosis and abdominal pain. Correlation is made with prior CT from 06/16/2021. FINDINGS: Diffuse low-density throughout the liver is again noted consistent with hepatic steatosis. The previously noted hyperdense lesions within the liver on the postcontrast study appear to be hyperdense on the precontrast study as well. These have the appearance of true lesions. There is one in the left lobe and 3 in the right lobe. Gallbladder surgically absent. No biliary duct dilatation is seen. The pancreas and spleen are unremarkable. No adrenal mass is detected. Kidneys are unremarkable. Aorta is nonaneurysmal. Bowel loops are nonobstructed. There is no ascites. IMPRESSION: Hepatic steatosis. There are hyperdense liver masses in both the right and left lobes. A dedicated liver MRI would be useful for further evaluation to further characterize the liver lesions. Dictated by: Dictated on workstation # [id number]
== END ==
LOC: RAD 13:15
PROVIDERS: ATTEND Nurse Practitioner Family
DX: K76.0 Fatty (change of) liver, not elsewhere classified (principal)
CPT/HCPCS: 74150

== ENCOUNTER → 2021-07-22 | Outpatient (CLI) | payer MEDICAID ==
[~2021-07-22] MED LIST changes: +GADOTERATE 0.5 MMOL/ML (CLARISCAN) 20 ML VIAL IV ONE
--- NOTE | 2021-07-22 09:38 | Diagnostic Imaging Report ---
EXAMINATION: MRI of the abdomen with and without contrast. TECHNIQUE: Multiplanar, multisequence MR images of the abdomen were obtained with and without intravenous contrast. HISTORY: Liver lesions on prior CT COMPARISON: 06/16/2021 FINDINGS: Liver: The liver lesion seen on prior CT are T1 hyperintense and T2 iso to mildly hypointense. They show homogenous contrast enhancement. There is diffusion restriction and signal loss on in phase imaging. A total of four lesions are seen. The largest is in segment six and measures 2.8 x 2.2 cm. Liver is moderately steatotic. No surface nodularity. Ducts: No biliary ductal dilation. Gallbladder: Absent. Pancreas: Normal. Spleen: Enlarged with craniocaudal dimension of 16 cm. Adrenals: Normal. Kidneys: No suspicious lesions. No hydronephrosis. Bowel: Normal. Other: No lymphadenopathy. Visualized portions of the thorax are normal. No suspicious osseus lesions. IMPRESSION: 1. A total of four liver lesions are seen which show imaging characteristics most consistent with but not diagnostic of hepatic adenomas. Recommend correlation for oral contraceptive use. Continued imaging follow-up is recommended, biopsy could be considered but would be an aggressive course of action. 2. Incidental note of mild splenomegaly. Dictated by: Dictated on workstation # [id number]
== END ==
LOC: RAD 08:00
PROVIDERS: ATTEND Nurse Practitioner Family
DX: K76.9 Liver disease, unspecified (principal); R16.1 Splenomegaly, not elsewhere classified
CPT/HCPCS: 74183